=== PATIENT | male | born 1980 | race Caucasian/White ===

== ENCOUNTER → 2020-07-08 11:16 | Outpatient (CLI) | payer OTHER, MEDICAID, SELFPAY ==
--- NOTE | 2020-07-08 | DI.MRI.S_ITS ---
PROCEDURE: MR KNEE RT WO CON INDICATIONS: RIGHT KNEE DERANGEMENT TECHNIQUE: Noncontrast sagittal PD fast spin echo and T2 fast spin echo with fat saturation, sagittal 3-D FLASH with fat saturation; coronal T1 spin echo and PD fast spin echo with fat saturation, and axial PD fast spin echo with fat saturation through the knee. COMPARISON: None. FINDINGS: Image quality: Excellent. Menisci: Complex oblique tear involving posterior horn of medial meniscus is seen extending to both superior and inferior articulating surface. There is no focal lateral meniscal tear.. The meniscal root ligaments appear intact. Cruciate ligaments: The anterior and posterior cruciate ligaments appear intact. Medial structures: The medial collateral ligament appears intact. The posterior oblique ligament, semimembranosus tendon insertions, oblique popliteal ligament, and meniscocapsular junction appear intact. Visualized portions of the pes anserinus tendons appear normal. No abnormal bursal fluid. Lateral structures: The lateral collateral ligament, long and short heads of the biceps femoris tendon appear intact. The popliteus tendon appears normal; the popliteofibular ligament appears intact. The posterosuperior and anteroinferior popliteomeniscal fascicles appear intact. The arcuate and fabellofibular ligaments appear intact, on either side of the lateral inferior geniculate artery. Iliotibial band appears normal. Anterior structures: The quadriceps and patellar tendons appear intact. Patellar alignment is normal. No femoral trochlear dysplasia or ventral trochlear prominence. No edema in the infrapatellar fat pad. Bones and cartilage: Marrow edema involving antral medial periphery of medial femoral condyle is seen without discrete fracture line. Subtle marrow edema is also seen in medial periphery of patella. No other area of abnormal marrow signal is noted. The cartilage of the medial and lateral femorotibial compartments, as well as the patellofemoral compartment, appears normal in thickness. Joint space: There is physiologic knee joint fluid. No Gutierrez's cyst. Normal appearing synovial plicae are incidentally noted. IMPRESSION: 1. Suggestion of bony contusion involving antral medial periphery of medial femoral condyle and medial periphery of patella. No definite fracture is seen. No dislocation. 2. Cruciate ligaments are intact. 3. Complex oblique tear involving posterior horn of medial meniscus extending to both superior and inferior articulating surfaces. No evidence of focal lateral meniscal tear. Dictated by: Harmeet Cortez M.D. on 07/08/2020 at 13:40 Approved by: Harmeet Cortez M.D. on 07/08/2020 at 13:43
== END ==
PROVIDERS: Family Provider Nurse Practitioner; PCP Family Medicine; Referring Provider Family Medicine; Visit Provider Family Medicine
DX: S83.231A Complex tear of medial meniscus, current injury, right knee, initial encounter (principal); X58.XXXA Exposure to other specified factors, initial encounter
CPT/HCPCS: 73721

== ENCOUNTER → 2023-05-13 17:29 | Outpatient (CLI) | payer OTHER, MEDICAID, SELFPAY ==
--- NOTE | 2023-05-13 17:30 | DI.MRI.S_ITS ---
PROCEDURE: MR KNEE LT WO CON INDICATIONS: left knee pain, suspect meniscus tear. Had same in R knee TECHNIQUE: Noncontrast sagittal PD fast spin echo and T2 fast spin echo with fat saturation, sagittal 3-D FLASH with fat saturation; coronal T1 spin echo and PD fast spin echo with fat saturation, and axial PD fast spin echo with fat saturation through the knee. COMPARISON: [facility] ([facility]), CR, XR KNEE LT 3V, 04/27/2023, 14:29. FINDINGS: Image quality: Excellent. Anterior Cruciate Ligament: Intact. Posterior Cruciate Ligament: Intact. Medial Collateral Ligament: Intact. Lateral Collateral Ligament: Intact. Medial Meniscus: There is complex tearing of the medial meniscus. Horizontal oblique components are seen at the posterior horn and body extending to the inner third of the tibial articular surface at the posterior horn and the outer third at the meniscal body. A small centrally displaced meniscal flap tear is seen at the posterior root attachment. No meniscal extrusion is seen. Lateral Meniscus: Intact. Medial and Lateral Tendons: The semimembranosus tendon insertions and meniscocapsular junction appear intact. Visualized portions of the pes anserinus tendons appear normal. No abnormal bursal fluid. The long and short heads of the biceps femoris tendon appear intact. The popliteus tendon appears intact. No signs of posterolateral corner injury. Iliotibial band appears normal. Anterior Structures: The quadriceps and patellar tendons appear intact. No patellar subluxation. No femoral trochlear dysplasia or ventral trochlear prominence. No edema in the infrapatellar fat pad. Bones: No acute trabecular bone injury or fracture. Medial Femorotibial Cartilage: Mild partial-thickness cartilage thinning is seen in the weight-bearing portion of medial compartment without a focal defect. Lateral Femorotibial Cartilage: No focal cartilage defect. Patellofemoral Cartilage: No focal cartilage defect. Soft Tissues: Small joint effusion is present. Trace medial popliteal cyst. The musculature surrounding the knee is normal in bulk. IMPRESSION: 1. Complex tearing of the medial meniscus with horizontal oblique components at the posterior horn and body as well as a small centrally displaced meniscal flap component at the posterior root attachment. 2. 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 3. No acute trabecular bone injury. The cruciate and collateral ligaments are intact. Lateral meniscus is intact. 4. Small joint effusion. Approved by: Lauri Sorensen M.D. on 05/16/2023 at 10:33
== END ==
PROVIDERS: Family Provider Nurse Practitioner; PCP Family Medicine; Referring Provider Family Medicine; Visit Provider Family Medicine
DX: S83.232A Complex tear of medial meniscus, current injury, left knee, initial encounter (principal); M94.262 Chondromalacia, left knee; M25.462 Effusion, left knee; M25.562 Pain in left knee
CPT/HCPCS: 73721

== ENCOUNTER → 2023-11-30 11:31 | Outpatient (CLI) | payer OTHER, MEDICAID, SELFPAY ==
[2023-11-30 19:46] LABS: Hematocrit 41.7 % (41-53); Hemoglobin 14.5 g/dL (13.5-17.5); Mean Corpuscular HGB Conc 34.7 % (30-36); Mean Corpuscular Hemoglobin 30.4 PG (26-34); Mean Corpuscular Volume 87.5 fL (80-100); Platelet Count 231 X10^3/uL (150-400); Red Blood Cell Count 4.76 X10^6/uL (4.5-5.9); Red Cell Distribution Width 12.9 % (11.6-14.8); White Blood Cell Count 6.3 X10^3/uL (4.5-11.0)
[2023-11-30 20:12] LABS: Neutrophils Absolute Manual 3528 /uL (3000-5900); Total Cells Counted 100
[2023-11-30 20:13] LABS: RBC Morphology Normal Morphology
[2023-11-30 20:15] LABS: Erythrocyte Sedimentation Rate 2 MM/HR (0-15)
[2023-12-06 20:35] LABS: ANA Screen, IFA Negative (.)
[2023-12-08 08:08] LABS: Alder IgE <0.10 kU/L (Class 0); Alternaria alternata IgE <0.10 kU/L (Class 0); Aspergillus fumigatus IgE <0.10 kU/L (Class 0); Box Elder IgE <0.10 kU/L (Class 0); Cat Dander IgE <0.10 kU/L (Class 0); Cladosporium herbarum IgE <0.10 kU/L (Class 0); Cockroach IgE <0.10 kU/L (Class 0); Cottonwood IgE <0.10 kU/L (Class 0); D farinae IgE <0.10 kU/L (Class 0); D pteronyssinus IgE <0.10 kU/L (Class 0); Dog Dander IgE <0.10 kU/L (Class 0); Elm Tree IgE <0.10 kU/L (Class 0); IgE Mugwort <0.10 kU/L (Class 0); IgE Thistle,Russian <0.10 kU/L (Class 0); Immunoglobulin E 12 IU/mL (6-495); Mountain Cedar IgE <0.10 kU/L (Class 0); Mouse Urine Proteins IgE <0.10 kU/L (Class 0); Oak Tree IgE <0.10 kU/L (Class 0); Penicillium chrysogen IgE <0.10 kU/L (Class 0); Pigweed, Common IgE <0.10 kU/L (Class 0); Sheep Sorrel IgE <0.10 kU/L (Class 0); Silver Birch IgE <0.10 kU/L (Class 0); Timothy Grass IgE <0.10 kU/L (Class 0)
[2023-12-08 09:46] LABS: Testosterone Free 11.31 ng/dL (5.00-21.00)
== END ==
PROVIDERS: Family Provider Nurse Practitioner; PCP Family Medicine; Visit Provider Family Medicine
DX: R53.83 Other fatigue (principal); R63.4 Abnormal weight loss; R61 Generalized hyperhidrosis
CPT/HCPCS: 82785; 84402; 84403; 85025; 85651; 86003; 86038